=== PATIENT | female | born 1985 | race African-American/Black ===

== ENCOUNTER 2017-06-03 17:50 | Emergency (ER) | payer SELFPAY ==
[~2017-06-03] VITALS: Ht 167.6 cm; Wt 81.6 kg
[2017-06-03 18:05] VITALS: BP 110/69
[2017-06-03] MEDS ORDERED: Lidocaine 1% MPF 10mg/ml 5ml INJ ONE (18:15)
[2017-06-03] MEDS ORDERED: Bacitracin Oint UD TOPIC ONE (18:15)
[2017-06-03] MEDS ORDERED: CEPHALEXIN500 MG ORAL (18:35)
[2017-06-03] MEDS ORDERED: IBUPROFEN600 MG ORAL (18:35)
[2017-06-03] MEDS ORDERED: BACTRIM DS TAB1 EAC1 ORAL (18:35)
[2017-06-03 19:16] VITALS: BP 1/1
--- NOTE | 2017-06-03 19:21 | Emergency Room Report ---
History of Present Illness General Chief Complaint: Skin Rash/Abscess Source: Patient Present Illness HPI The patient is a 32-year-old female presenting for left forearm pain. She noticed a red bump on the forearm 5 days prior which has been increasing in size. Pain has been increasing as well as now described as a 9/10 dull ache with touch. Does not radiate. She is unsure of how this occurred. She denies any other symptoms including N, V, F, chills Allergies: Coded Allergies: No Known Allergies (Unverified , 06/03/17) Patient History Past Medical History: see triage record Pertinent Family History: none Last Menstrual Period: 05/03/17 Now: No Reviewed Nursing Documentation: PMH: Agreed, PSxH: Agreed Nursing Documentation-PMH Past Medical History: No Stated History Review of Systems All Other Systems: negative except mentioned in HPI Physical Exam Vital Signs Date Time Temp Pulse Resp B/P Pulse Ox O2 Delivery O2 Flow Rate FiO2 06/03/17 17:57 98.2 90 14 110/69 98 Room Air Sp02 EP Interpretation: reviewed, normal General Appearance: no apparent distress, alert, GCS 15, non-toxic Head: normocephalic, atraumatic Eyes: bilateral eye PERRL, bilateral eye normal inspection Musculoskeletal: normal range of motion, tender - TTP over the abscess of L arm Neurologic: alert, oriented x3, responsive, motor strength/tone normal, sensory intact, speech normal Psychiatric: judgement/insight normal, memory normal, mood/affect normal, no suicidal/homicidal ideation Skin: rash, other - L distal ulnar side abscess of forearm. 2cm in diameter. Fluctuant. Lymphatic: no adenopathy Procedures Incision and Drainage Incision and Drainage : Consent: Verbal Site: L distal forearm Blade Size: 11 I & D Procedure: betadine prep, sterile drapes applied, sterile dressing applied Wound Location: upper extremity Wound's Depth, Shape: superficial Wound Length (cm): 3 Wound Explored: contaminated Irrigated w/ Saline (ccs): 100 Anesthesia: 1% Lidocaine Volume Anesthetic (ccs): 3 Splint Applied?: No Sling Applied?: No Patient Tolerated: Well Complications: None Medical Decision Making PA Attestation Dr. Adams is my supervising physician. Patient management was discussed with my supervising physician Diagnostic Impression: Primary Impression: Abscess ER Course The patient is a 32-year-old female presenting for left forearm pain Differential diagnoses considered but not limited to: abscess, cellulitis, insect bite PE: afebrile. L distal ulnar side abscess of forearm. 2cm in diameter. Fluctuant. Betadine prep was used to clean the skin and surrounding area. One percent lidocaine without epinephrine was used to anesthetize the are of planned incision. A #11 blade was used to make an incision in the central area of fluctuance approximately 1/3 the size of the diameter of the abscess. Once the incision was made, purulent material was expressed with blood. Blunt dissection was then used to release loculations and expressed more purulent material. Once only blood appeared to be expressed from the incision, normal saline was used to irrigate the inside of the abscess. The wound was then cleaned and sterile dressing applied. She is placed on antibiotics and is given ER precautions. Last Vital Signs Date Time Temp Pulse Resp B/P Pulse Ox O2 Delivery O2 Flow Rate FiO2 06/03/17 19:16 1/1 06/03/17 18:05 98.2 14 98 Room Air 06/03/17 17:57 90 Status: improved Disposition: HOME, SELF-CARE Condition: Improved Scripts Ibuprofen* (MOTRIN*) 600 Mg Tablet 600 MG ORAL Q8H Y for For Pain, #30 TAB 0 Refills Prov: MAGGI SAINZ P.A. 06/03/17 Trimethoprim/Sulfamethoxazole 160/800* (BACTRIM DS TABLET*) 1 Each Tablet 1 TAB ORAL TWICE A DAY, #14 TAB Prov: TERZIANMAGGI P.A. 06/03/17 Cephalexin* (KEFLEX*) 500 Mg Capsule 500 MG ORAL EVERY 12 HOURS, #14 CAP 0 Refills Prov: TERZIANMAGGI P.A. 06/03/17 Referrals: NOT CHOSEN [facility]/MD,REFERRING (PCP) Patient Instructions: Abscess Additional Instructions: I discussed my findings with the patient. All questions and concerns have been answered. Treatment and medication compliance have been addressed. I advised the patient that they need to follow up with PMD in 3-5 days. Return to ED if symptoms worsen, new symptoms arise, or if needed for any reason. Patient verbalized understanding of discharge instructions. MAGGI SAINZ Jun 03, 2017 19:21
== END 2017-06-03 19:15 | disposition home or self-care (01) ==
LOC: EMR 18:38
DX: L02.414 Cutaneous abscess of left upper limb (principal)
CPT/HCPCS: 10060